=== PATIENT | male | born 1930 | race Caucasian/White ===

== ENCOUNTER 2019-04-30 16:44 | Emergency (ER) | payer MEDICARE, OTHER ==
[~2019-04-30] VITALS: Ht 172.7 cm; Wt 86.4 kg
[~2019-04-30 16:44] MED LIST: ALPR0.25 PO; AMLO10TA2 PO; ASPI325T PO; AUGM875T27 PO; CRES40TA PO; DOCU100C PO; FURO40TA2 PO; GLYB5TAB5 PO; HYDR12.55 PO; JANU100T PO; LOSA100T36 PO; MAPA500T17 PO; METO50TA2 PO; MULTTAB4 PO; NITR0.6S PO; OMEP20CA3 PO; POTA10IN2 PO; SENO8.6T9 PO; SERT-141 PO; TERA5CAP60 PO; VITA-122 PO
[2019-04-30] MEDS ORDERED: PRED10TA2 PO (17:24)
[2019-04-30] MEDS ORDERED: FLOM0.4C39 PO (17:24)
[2019-04-30] MEDS ORDERED: IPRA0.00 NEB (17:24)
[2019-04-30] MEDS ORDERED: FINA5TAB2 PO (17:24)
[2019-04-30] MEDS ORDERED: ALBU83IN NEB (17:24)
[2019-04-30] MEDS ORDERED: VITA500C24 PO (17:24)
[2019-04-30] MEDS ORDERED: INDO75CA PO (17:24)
[2019-04-30 17:50] LABS: BASO % 0.2 % (0.0-1.0); EOS # 0.2 10^3/uL (0.0-0.50); EOS % 2.4 % (0.0-3.0); HEMATOCRIT 32.8 % (42.0-52.0); HEMOGLOBIN 10.4 g/dl (13.5-17.5); LYMPH # 1.3 10^3/uL (1.5-4.5); LYMPH % 20.7 % (24.0-44.0); MEAN CORPUSCULAR HEMOGLOBIN 30.7 pg (27.0-33.0); MEAN CORPUSCULAR HGB CONC 31.7 g/dl (32.0-36.5); MEAN CORPUSCULAR VOLUME 96.8 fl (80.0-96.0); MONO # 0.6 10^3/uL (0.0-0.8); MONO % 9.7 % (0.0-5.0); NEUTROPHILS # 4.3 10^3/uL (1.8-7.7); NEUTROPHILS % 66.7 % (36.0-66.0); RED BLOOD COUNT 3.39 10^6/uL (4.30-6.10); WHITE BLOOD COUNT 6.4 10^3/uL (4.0-10.0)
[2019-04-30 18:22] LABS: PLATELET COUNT, AUTOMATED 152 10^3/uL (150-450)
[2019-04-30 18:29] LABS: ALBUMIN 2.6 GM/DL (3.2-5.2); BILIRUBIN,TOTAL 0.2 MG/DL (0.2-1.0); C REACTIVE PROTEIN QUANTITATIV 3.27 MG/DL (0.00-0.30); CALCIUM LEVEL 8.2 MG/DL (8.8-10.2); CREATININE FOR GFR 1.62 MG/DL (0.70-1.30); POTASSIUM SERUM 4.7 MEQ/L (3.5-5.1); TOTAL PROTEIN 6.7 GM/DL (6.4-8.2); URIC ACID 6.1 MG/DL (3.5-7.2)
[2019-04-30 19:17] VITALS: BP 162/88
[2019-04-30] MEDS ORDERED: DOXYCYCLINE HYCLATE 100 MG in D5W MINI-BAG PLUS 100 ML IV ONE (19:30)
[2019-04-30] MEDS ORDERED: DOXY-350 PO (19:31)
--- NOTE | 2019-05-01 07:18 | REP ---
RIGHT FOOT SERIES: Four views of the right foot are performed. I see no acute fracture or dislocation. Metallic clips are seen in the medial soft tissues of the ankle. There are mild vascular calcifications in the soft tissues. 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 Some vague calcifications are seen in the medial soft tissues adjacent to the head of the first metatarsal and there is mild soft-tissue swelling at that location. There are no signs of gout, with no bony erosive changes. No osseous destruction is seen. IMPRESSION: Severe DJD first metatarsal phalangeal joint. No evidence of osseous destruction of erosive arthropathy. No acute fracture. Electronically Signed by Rafael Sim MD 05/01/2019 09:16 A
== END 2019-04-30 20:56 | disposition home or self-care (01) ==
LOC: M ED 16:44
DX: L03.115 Cellulitis of right lower limb (principal); E11.9 Type 2 diabetes mellitus without complications; J44.9 Chronic obstructive pulmonary disease, unspecified; I25.10 Atherosclerotic heart disease of native coronary artery without angina pectoris; I71.4 Abdominal aortic aneurysm, without rupture; M10.9 Gout, unspecified; Z95.0 Presence of cardiac pacemaker; Z95.1 Presence of aortocoronary bypass graft; Z99.81 Dependence on supplemental oxygen; Z79.899 Other long term (current) drug therapy; Z79.82 Long term (current) use of aspirin